=== PATIENT | male | born 1935 | race Caucasian/White ===

== ENCOUNTER 2017-01-26 04:10 | Inpatient (IN) ==
[2017-01-17 11:15] LABS: URINE MICRO REVIEW NEEDED? NO; URINE SOURCE CLEAN CATCH
[2017-01-17 11:25] LABS: BASO% 0.4 % (0.0-0.8); EOS# 0.41 X1000 (0.0-0.7); EOS% 5.9 % (0.0-10.0); HEMOGLOBIN 14.6 g/dL (14.0-18.0); LYMPH# 1.51 X1000 (1.2-3.4); LYMPH% 21.8 % (20.5-51.1); MANUAL DIFF NEEDED? NO; MCH 30.3 PG (27-31); MCHC 33.2 g/dL (33-37); MCV 91.3 FL (81-99); MONO# 0.95 X1000 (0.11-0.59); MONO% 13.7 % (1.7-9.3); MPV 10.4 FL (7.4-10.4); NEUT% 58.2 % (42.2-75.2); PLT 203 X1000 (130-400); RBC 4.82 XMIL (4.7-6.1)
[2017-01-17 11:34] LABS: BILIRUBIN URINE NEGATIVE (NEGATIVE); BLOOD URINE NEGATIVE (NEGATIVE); COLOR YELLOW; GLUCOSE URINE NEGATIVE (NEGATIVE); LEUKOCYTES URINE NEGATIVE (NEGATIVE); NITRITE URINE NEGATIVE (NEGATIVE); PH URINE 5.5; PROTEIN URINE NEGATIVE (NEGATIVE); PROTIME 10.5 Seconds (9.2-11.7); PTT 26.1 Seconds (22.0-36.0); SP GRAVITY URINE 1.022; TURBIDITY URINE CLEAR (CLEAR); UR EPITHELIAL CELLS <10 /HPF (<10); URINE BACTERIA NEGATIVE /HPF; URINE RBC <10 /HPF (<10); URINE WBC <10 /HPF (<10); UROBILINOGEN URINE NORMAL (NORMAL)
[2017-01-17 11:54] LABS: AGAP 12; BUN 22 mg/dL (8-22); CALCIUM 9.2 mg/dL (8.8-10.2); CHLORIDE 101 mmol/L (98-107); COSMO 284; POTASSIUM 5.4 mmol/L (3.5-5.1); SODIUM 141 mmol/L (136-145); TCO2 28 mmol/L (25-35)
[2017-01-26] MEDS ORDERED: COLACE ONE (06:52)
[2017-01-26] MEDS ORDERED: REGLAN ONE (06:52)
[2017-01-26] MEDS ORDERED: PEPCID ONE (06:52)
[2017-01-26] MEDS ORDERED: CELEBREX ONE (06:53)
[2017-01-26] MEDS ORDERED: KEFZOL 2 GM/D5W 2 GM/50 ML IVPB ONE (06:53)
[2017-01-26] MEDS ORDERED: LR 1,000 ML ONE ×2 (06:53→11:51)
[2017-01-26] MEDS ORDERED: LYRICA ONE (06:53)
[2017-01-26] MEDS ORDERED: TORADOL ONE (08:37)
[2017-01-26] MEDS ORDERED: SODIUM CHLORIDE 0.9% ONE (08:38)
[2017-01-26] MEDS ORDERED: MARCAINE 0.25% PF/EPI 1:200,000 ONE (08:38)
[2017-01-26] MEDS ORDERED: EXPAREL 1.3% ONE (08:38)
[2017-01-26] MEDS ORDERED: CYKLOKAPRON 1,000 MG/NS 1,000 MG/100 ML IVPB ONE ×2 (08:38→08:39)
[2017-01-26] MEDS ORDERED: NEOSPORIN G.U. IRRIGANT ONE (08:39)
[2017-01-26] MEDS ORDERED: VANCOMYCIN ONE (08:39)
[2017-01-26 10:03] LABS: URINE MICRO REVIEW NEEDED? NO; URINE SOURCE CATH
[2017-01-26 10:13] LABS: BILIRUBIN URINE NEGATIVE (NEGATIVE); BLOOD URINE NEGATIVE (NEGATIVE); COLOR YELLOW; GLUCOSE URINE NEGATIVE (NEGATIVE); LEUKOCYTES URINE NEGATIVE (NEGATIVE); NITRITE URINE NEGATIVE (NEGATIVE); PROTEIN URINE NEGATIVE (NEGATIVE); SP GRAVITY URINE 1.016; TURBIDITY URINE CLEAR (CLEAR); UROBILINOGEN URINE NORMAL (NORMAL)
[2017-01-26 10:14] LABS: UR EPITHELIAL CELLS <10 /HPF (<10); URINE BACTERIA NEGATIVE /HPF; URINE RBC <10 /HPF (<10); URINE WBC <10 /HPF (<10)
[2017-01-26] MEDS ORDERED: DIPRIVAN 1% 500 MG/50 ML BOTTLE ONE (11:41)
[2017-01-26] MEDS ORDERED: FENTANYL ONE (11:41)
[2017-01-26] MEDS ORDERED: DIPRIVAN 1% ONE (11:41)
[2017-01-26] MEDS ORDERED: NEO-SYNEPHRINE ONE (11:50)
[2017-01-26] MEDS ORDERED: ZOFRAN ONE (11:50)
[2017-01-26] MEDS ORDERED: ROBINUL ONE (11:51)
[2017-01-26] MEDS ORDERED: OFIRMEV 1000 MG/ISOTONIC SOLN 1,000 MG/100 ML BOTTLE ONE (11:51)
[2017-01-26] MEDS ORDERED: DECADRON ONE (11:51)
--- NOTE | 2017-01-26 12:06 | Diag Imaging Result Doc PS360 ---
EXAM: KNEE 1-2 VIEWS-RIGHT HISTORY: R TKA TECHNIQUE: AP and lateral portable COMMENT: There is a total knee arthroplasty. There appears to be appropriate alignment. IMPRESSION: Postsurgical changes. Electronically signed by Amish Lott 01/26/2017 12:04 PM
[2017-01-26] MEDS ORDERED: NS 1,000 ML ONE (12:24)
[2017-01-26] MEDS ORDERED: MORPHINE IV PRN (13:52)
[2017-01-26] MEDS ORDERED: ZOFRAN PO PRN (14:00)
[2017-01-26] MEDS ORDERED: OXY IR PO PRN (14:00)
[2017-01-26] MEDS: CENTRUM SILVER PO SCH (14:01)
[2017-01-26] MEDS: NORVASC PO SCH (14:02)
[2017-01-26] MEDS: PRINIVIL PO SCH (14:03)
[2017-01-26] MEDS: TIMOPTIC 0.5% OPH SOLUTION BOTH EYES SCH (14:03)
[2017-01-26] MEDS: NS 1,000 ML IV SCH ×2 (14:17→22:59)
[2017-01-26] MEDS: TYLENOL PO SCH ×2 (14:31→20:25)
[2017-01-26] MEDS: KEFZOL 1 GM/D5W 1 GM/50 ML IVPB IV SCH ×2 (14:31→22:59)
--- NOTE | 2017-01-26 15:14 | OPERATIVE NOTE ---
PROCEDURE DATE: 01/26/2017 PREOPERATIVE DIAGNOSIS: Degenerative osteoarthritis, right knee. POSTOPERATIVE DIAGNOSIS: Degenerative osteoarthritis, right knee. PROCEDURE: Right total knee arthroplasty with DePuy Attune size 7 posterior stabilized femur, size 7 tibial tray, 7 mm rotating flap platform tibial insert, and a 38 mm medialized anatomic patella. SURGEON: Mack Hsu MD. BONE CHAR OPERATOR: JENNIFER Jaquez. SECOND PLAYROOM ATTENDANT: ADRY Hernandez. ANESTHESIA: Spinal. IV FLUIDS: 1800 mL lactated Ringer. ESTIMATED BLOOD LOSS: 30 mm. TOURNIQUET TIME: 90 minutes at 350 mmHg. COMPLICATIONS: None. INDICATION: The patient is a pleasant 81-year-old male with chronic history of worsening pain and discomfort of his right knee. Continued pain and discomfort despite appropriate nonoperative treatment. X-rays revealed degenerative osteoarthritis. Recommendation to proceed with right total knee arthroplasty was offered. Risks of surgery were explained, including the risks of anesthesia, , bleeding, infection, failure to relieve pain, postoperative stiffness, nerve injury, blood clots, and other imponderables. All questions were answered. The patient and family wished to proceed with surgery. DETAILS OF OPERATION: The patient was taken to the operating room and underwent spinal anesthesia. After adequate anesthesia obtained he was obtained, he was placed supine on the operating table. The right lower extremity was subsequently prepped and draped in the usual sterile fashion. An Esmarch was used to exsanguinate the right lower extremity and the tourniquet was inflated to 350 mmHg. A standard anterior incision made with the skin knife. Medial and lateral skin envelopes were developed. Standard medial parapatellar arthrotomy was then performed. A patella fat pad was excised. Superior retractors were then placed. Approximately 1 cm anterior to the PCL insertion, a starting reamer was passed. The intramedullary guide was then placed and the distal femoral cutting block was pinned in position. Distal femoral cut was then performed. A sizing block was placed through that and measured size 7. Corresponding 7 cutting block was pinned in position. Anterior, posterior, chamfer cuts were then made. The patient had some tightness with retraction laterally and, therefore, the knee was carried to full extension, and the patella was resected in standard fashion. A protective disk was then placed. Retractors were then placed. Attention was then turned to the proximal tibia where further resection of the ACL and PCL was performed. A proximal tibia cutting block was placed in position on the proximal tibia and had good alignment confirmed. It was then pinned and had good alignment confirmed with the alignment katy. The proximal tibia was then resected in standard fashion. The medial lateral meniscus was excised. A curved osteotome was used to remove the posterior osteophytes. A spacer block was then placed and had good soft tissue balance with both flexion and extension. A size 7 tibial tray appeared to be the correct size. This was pinned in position. This was followed by central reamer and a fin punch. A box cutting guide was then placed on the distal femoral and a box cut was then performed. A trial femoral component was then placed in position. Two lug holes were placed. It had good fit. A size 38 appeared to be the correct size for the patella. The guide was then placed in position and the drill holes were performed. The patella trial was then placed and had good patellofemoral tracking. After this had been performed, the trial components were then removed. Copious irrigation was performed with antibiotic pulsatile lavage while vancomycin was mixed with cement on back table. Sequential cementing was then performed, first with the tibial tray and excess cement was removed with a [place] followed by the femoral component. Excess cement was removed with a [place]. A trial tibial insert was placed at full extension and axial loading was maintained while cement cured. Patella cemented in standard fashion. Patella clamp was placed. After the cement had cured, peripheral cement was removed with small osteotome. Exparel was placed in the deep soft tissue as well as subcutaneous tissue while the cement was curing. The 7 mm rotating platform tibial insert appeared to be the correct size. Trial component were removed. Exparel was placed in the deep posterior capsule. The wound was copiously irrigated once again with antibiotic pulsatile lavage. A 7 mm rotating platform tibial insert was then placed and had good soft tissue balancing and good patellofemoral tracking. A 1/8 Hemovac drain was placed. It was not sewn in. Copious irrigation then performed once again with antibiotic pulsatile lavage. Number 1 Vicryl was then used to repair the arthrotomy followed by 2-0 Vicryl in the subcutaneous tissue, and skin danielle. Adaptic, sterile 4 x 4, Webril, cryo unit, ISAURA wrap were applied on the right lower extremity. The patient tolerated the procedure well. No complications. The patient was transferred to the recovery room in stable condition. cc: Mack Hsu MD MTDD
[2017-01-26] MEDS: COLACE PO SCH (20:24)
[2017-01-26] MEDS: CRESTOR PO SCH (20:24)
[2017-01-26] MEDS: PERIDEX MT SCH (20:24)
[2017-01-26] MEDS: COREG PO SCH (21:00)
[2017-01-27] MEDS: TYLENOL PO SCH ×4 (02:17→20:38)
[2017-01-27] MEDS: NS 1,000 ML IV SCH ×2 (03:57→16:34)
[2017-01-27 05:58] LABS: HEMATOCRIT 37.1 % (42.0-52.0); HEMOGLOBIN 12.2 g/dL (14.0-18.0)
[2017-01-27] MEDS: XARELTO PO SCH (06:12)
[2017-01-27 06:28] LABS: AGAP 12; BUN 21 mg/dL (8-22); CALCIUM 7.8 mg/dL (8.8-10.2); CHLORIDE 102 mmol/L (98-107); COSMO 282; POTASSIUM 4.7 mmol/L (3.5-5.1); SODIUM 139 mmol/L (136-145); TCO2 25 mmol/L (25-35)
--- NOTE | 2017-01-27 06:47 | PROGRESS NOTE ---
DATE: 01/27/2017 SUBJECTIVE: The patient is a pleasant 81-year-old male who is 1 day status post right total knee arthroplasty. He is currently resting comfortably this morning. He has no complaints. OBJECTIVE: On physical exam, patient's right lower extremity dressing is intact. Calf is soft. He is neurovascularly intact distally. He has active dorsiflexion and plantar flexion. LABORATORY DATA: His hemoglobin is 12.2 and hematocrit is 37.1. IMPRESSION: Postop day #1 status post right total knee arthroplasty. PLAN: At this point, we will discontinue his drain and change his dressing. Discontinue his Gutierrez. We will also Hep-Lock his IV. We will consult Curing Machine Operator for inpatient rehabilitation. cc: Mack Hsu MD
[2017-01-27] MEDS: PRINIVIL PO SCH (11:46)
[2017-01-27] MEDS: COREG PO SCH ×3 (11:46→20:41)
[2017-01-27] MEDS: COLACE PO SCH ×2 (11:46→20:38)
[2017-01-27] MEDS: PEPCID PO SCH (11:46)
[2017-01-27] MEDS: CRESTOR PO SCH (11:46)
[2017-01-27] MEDS: CENTRUM SILVER PO SCH (11:47)
[2017-01-27] MEDS: TIMOPTIC 0.5% OPH SOLUTION BOTH EYES SCH (11:47)
[2017-01-27] MEDS: NORVASC PO SCH (11:47)
[2017-01-27] MEDS: PERIDEX MT SCH ×2 (11:48→20:38)
--- NOTE | 2017-01-27 12:35 | Diag Imaging Result Doc PS360 ---
EXAM: CHEST-PORTABLE HISTORY: [facility] TECHNIQUE: AP portable chest upright at 1050 COMMENT: The inspiration is less optimal than that on 12/02/2015, otherwise has been no significant change. IMPRESSION: Stable chest. Electronically signed by Amish Lott 01/27/2017 12:32 PM
[2017-01-27] MEDS: MILK OF MAGNESIA PO PRN (16:40)
[2017-01-28] MEDS: TYLENOL PO SCH ×4 (02:26→20:12)
[2017-01-28] MEDS: MILK OF MAGNESIA PO PRN ×2 (02:28→10:25)
[2017-01-28] MEDS: XARELTO PO SCH (05:27)
[2017-01-28 05:56] LABS: HEMATOCRIT 34.8 % (42.0-52.0); HEMOGLOBIN 11.3 g/dL (14.0-18.0)
--- NOTE | 2017-01-28 06:35 | PROGRESS NOTE ---
DATE: 01/28/2017 SUBJECTIVE: The patient is a pleasant 81-year-old male who is 2 days status post right total knee arthroplasty. Patient doing quite well and has no complaints this morning. OBJECTIVE: The patient's right lower extremity wound looks good. There is no signs or symptoms of infection. His calf is soft. He is neurovascularly intact distally. He has active dorsiflexion and plantar flexion. LABORATORY DATA: His hemoglobin is 11.3 and hematocrit is 34.8. IMPRESSION: Postop day #2 status post right total knee arthroplasty. PLAN: At this point, the patient will continue progressing with physical therapy. We will plan on discharging to inpatient rehabilitation tomorrow. He will follow up in the office in 2 to 3 weeks. cc: Mack Hsu MD
--- NOTE | 2017-01-28 06:40 | DISCHARGE SUMMARY ---
ADMISSION DATE: 01/26/2017 DISCHARGE DATE: 01/29/2017 ADMITTING DIAGNOSIS: Degenerative arthritis of the right knee. DISCHARGE DIAGNOSIS: Degenerative arthritis of the right knee, status post right total knee arthroplasty. BRIEF HISTORY: Patient is a pleasant 81-year-old male with chronic history of worsening pain and discomfort of his right knee. He continued with pain and discomfort despite appropriate nonoperative treatment. X-rays revealed degenerative arthritis. Recommendation was to proceed with right total knee arthroplasty was offered. Risks and benefits of surgery was explained. All questions were answered. Patient and family wished to proceed with surgery. HOSPITAL COURSE AND TREATMENT: The patient was admitted to the hospital and underwent right total knee arthroplasty. The patient had an uneventful postoperative course. By postop day #2, his wound looked good. His hemoglobin and hematocrit has stabilized at 11.3 and 34.8. The patient was progressing with physical therapy. The patient and family felt that they would benefit from inpatient rehabilitation. Prior to discharge, the patient is afebrile tolerating a regular diet. Wound looked good. There are no signs or symptoms of infection. His pain was well controlled with p.o. medication. DISCHARGE MEDICATIONS: 1. OxyIR 5 mg 1-2 p.o. q.3 hours p.r.n. pain. 2. Xarelto 10 mg p.o. daily x2 weeks. 3. For remaining medications, see please medication list. DISCHARGE INSTRUCTIONS: 1. The patient to be discharged for inpatient rehabilitation. 2. Consult physical therapy with full weightbearing right lower extremity and range of motion gait training per total knee protocol. 3. Discontinue danielle in 11 days. 4. Follow up in the office upon discharge from rehab. cc: Mack Hsu MD
[2017-01-28] MEDS ORDERED: ASPIRIN PO SCH (09:00)
[2017-01-28] MEDS: TIMOPTIC 0.5% OPH SOLUTION BOTH EYES SCH (09:15)
[2017-01-28] MEDS: PEPCID PO SCH (09:17)
[2017-01-28] MEDS: CENTRUM SILVER PO SCH (09:17)
[2017-01-28] MEDS: PERIDEX MT SCH ×2 (09:17→20:12)
[2017-01-28] MEDS: COREG PO SCH ×3 (09:17→20:12)
[2017-01-28] MEDS: COLACE PO SCH ×2 (09:17→20:12)
[2017-01-28] MEDS: CRESTOR PO SCH (09:17)
[2017-01-28] MEDS: NORVASC PO SCH (09:17)
[2017-01-28] MEDS: PRINIVIL PO SCH (09:17)
[2017-01-29] MEDS: NS 1,000 ML IV SCH (03:53)
[2017-01-29] MEDS: TYLENOL PO SCH ×2 (03:53→08:15)
[2017-01-29 05:00] LABS: HEMATOCRIT 34.7 % (42.0-52.0); HEMOGLOBIN 11.3 g/dL (14.0-18.0)
[2017-01-29] MEDS: XARELTO PO SCH (05:07)
[2017-01-29] MEDS: NORVASC PO SCH (08:15)
[2017-01-29] MEDS: PRINIVIL PO SCH (08:15)
[2017-01-29] MEDS: COREG PO SCH (08:15)
[2017-01-29] MEDS: PEPCID PO SCH (08:15)
[2017-01-29] MEDS: TIMOPTIC 0.5% OPH SOLUTION BOTH EYES SCH (08:15)
[2017-01-29] MEDS: COLACE PO SCH (08:15)
[2017-01-29] MEDS: CENTRUM SILVER PO SCH (08:16)
[2017-01-29] MEDS: CRESTOR PO SCH (08:16)
[2017-01-29] MEDS: PERIDEX MT SCH (08:18)
[2017-01-29 08:48] VITALS: BP 142/65
== END 2017-01-29 08:52 ==
LOC: SURHOLD 04:10 → 4N 12:49
PROVIDERS: ADMIT Orthopaedic Surgery Adult Reconstructive Orthopaedic Surgery; ATTEND Orthopaedic Surgery Adult Reconstructive Orthopaedic Surgery